=== PATIENT | female | born 1990 | race Caucasian/White ===

== ENCOUNTER 2020-09-16 17:15 | Emergency (ER) | payer BC, SELFPAY ==
[2020-09-16 17:30] VITALS: BP 153/79; PULSE 80; RESP 20; TEMP 36.6; O2SAT 100
--- NOTE | 2020-09-16 17:31 | ED.ABDPAIN ---
HPI - Abdominal Pain General Chief Complaint: Nausea/Vomiting/Diarrhea Stated Complaint: Diarrhea Source: patient Mode of arrival: ambulatory Limitations: no limitations History of Present Illness HPI narrative: Patient is a 30-year-old female who presents complaining of diarrhea x3 weeks. She reports loose watery stool every a.m. Denies abdominal pain. Denies nausea or vomiting. She reports initially taking Imodium without relief. She denies significant medical history. She denies taking over the counter medications at this time. MD elicited complaint: other (Diarrhea) Related Data Home Medications Medication Instructions Recorded Confirmed multivitamin 1 tablet PO DAILY 11/06/19 09/16/20 levonorgestrel-ethinyl estrad 1 tablet PO DAILY 09/16/20 09/16/20 [Vienva] Allergies Allergy/AdvReac Type Severity Reaction Status Date / Time No Known Allergies Allergy Verified 09/16/20 17:47 Review of Systems Review of Systems: Narrative: CONSTITUTIONAL: Denies fever, chills, or sweats. EYES: Denies visual changes, redness, or discharge. ENT: Denies rhinorrhea, congestion, sore throat, or otalgia. CARDIOVASCULAR: Denies chest pain, palpitations, or edema. RESPIRATORY: Denies cough or dyspnea. GASTROINTESTINAL: Denies abdominal pain, nausea, vomiting. Reports diarrhea daily x3 weeks. GENITOURINARY: Denies dysuria or hematuria. SKIN: Denies rash or itching. MUSCULOSKELETAL: Denies back pain, joint pain, or myalgia. NEUROLOGIC: Denies headache, numbness, dizziness, or weakness. PSYCHIATRIC: Denies anxiety or depression. [facility] Past Medical History Medical History (Updated 09/16/20 @ 18:01 by MADISON Baires) Depression GERD (gastroesophageal reflux disease) Rectal bleed Surgical History Surgical History No significant past surgical history Family History Family History Mother Hypertension Family history of elevated blood lipids Father Hypertension Family history of elevated blood lipids Social History Social History Smoking status: Never smoker Alcohol intake: current Substance use: never Occupation/Education: occupation Comments At the time of signature, I have reviewed and agree with nursing past medical, surgical, social, and family history unless otherwise noted. Please see nursing chart for further information. There is no relevant family history pertinent to the presenting complaint. Exam Narrative: Exam Narrative: GENERAL: Well-appearing, well-nourished, and in no acute distress. HEAD: Normocephalic, atraumatic. EYES: No redness or drainage. ENT: Mucous membranes pink and moist. CHEST: No respiratory distress. Clear to auscultation. HEART: Regular rate and rhythm. GI: Soft, nontender without rebound, or guarding. No distention. Bowel sounds normal in all quadrants. MUSCULOSKELETAL: No bony tenderness. EXTREMITIES: Normal range of motion. No edema. SKIN: Warm, dry, no rash. NEURO: No focal deficits. Alert and oriented x3. Gait steady. PSYCH: Normal affect. No signs of depression or anxiety. Course Vital Signs Vital signs: Vital Signs Temperature 36.6 C 09/16/20 17:30 Pulse Rate 80 09/16/20 17:30 Respiratory Rate 20 09/16/20 17:30 Blood Pressure 153/79 H 09/16/20 17:30 Pulse Oximetry 100 09/16/20 17:30 Temperature 36.6 C 09/16/20 17:30 Pulse Rate 80 09/16/20 17:30 Respiratory Rate 20 09/16/20 17:30 Blood Pressure 153/79 H 09/16/20 17:30 Pulse Oximetry 100 09/16/20 17:30 Reviewed-patient is informed that they may have pre-hypertension or hypertension based on a blood pressure reading. I recommend the patient call the primary care provider listed on their discharge instructions or a physician of their choice this week to arrange follow-up for further evaluation of
== END 2020-09-16 18:05 | disposition home or self-care (01) ==
PROVIDERS: Emergency Provider Nurse Practitioner; PCP Internal Medicine
DX: R19.7 Diarrhea, unspecified (principal); K21.9 Gastro-esophageal reflux disease without esophagitis; F32.9 Major depressive disorder, single episode, unspecified
CPT/HCPCS: 99213; G0463

== ENCOUNTER → 2020-10-30 02:40 | Outpatient (CLI) | payer BC, SELFPAY ==
[2020-10-30 19:43] LABS: SARS-CoV-2 RNA PCR Negative
== END ==
PROVIDERS: PCP Internal Medicine; Visit Provider Internal Medicine Gastroenterology
DX: Z01.812 Encounter for preprocedural laboratory examination (principal); Z20.822 Contact with and (suspected) exposure to COVID-19
CPT/HCPCS: C9803; U0003; U0005

== ENCOUNTER 2020-11-03 02:35 | Day surgery (SDC) | payer BC, SELFPAY ==
[2020-10-21 14:40] VITALS: BMI 26.4
[2020-11-03 09:04] VITALS: BP 110/66; PULSE 90; RESP 18; TEMP 36.8; O2SAT 100
[2020-11-03] MEDS: LACTATED RINGERS 1,000 ML 150 ML IV CONT (09:15)
--- NOTE | 2020-11-03 09:26 | PM.HPGS ---
History of Present Illness History of Present Illness Consent: Risks, benefits, and alternatives have been discussed and questions answered. Patient agrees to proceed with procedure. Chief complaint: diarrhea, epigastric pain Narrative: Maya Lopez is a 30 year old female who has had severe diarrhea for 2 months with negative stool studies. Also she has been having epigastric pain which affects her appetite. Pantoprazole did not relieve her symptoms Review of Systems Review of Systems: All systems reviewed & are unremarkable except as noted in HPI and below PMFSH Past Medical History Medical History Depression GERD (gastroesophageal reflux disease) Rectal bleed Surgical History Surgical History No significant past surgical history Family History Family History Mother Hypertension Family history of elevated blood lipids Father Hypertension Family history of elevated blood lipids Social History Social History Smoking status: Never smoker Alcohol intake: current Drinks per week: 5 Substance use: never Living arrangements: with family Gender identity (if verbalized by the patient): Male Spiritual care concerns: No Meds Home Medications and Allergies Home Medications Medication Instructions Recorded Confirmed Type multivitamin 1 tablet PO DAILY 11/06/19 10/21/20 History butalbital 50 mg-acetaminophen 325 1 cap PO Q4H PRN #14 cap 04/20/20 10/21/20 Rx mg-caffeine 40 mg-codeine 30 mg cap venlafaxine 150 mg 150 mg PO DAILY #90 cap 05/12/20 10/21/20 Rx capsule,extended release 24 hr alprazolam 0.25 mg tablet 0.25 mg PO DAILY PRN #30 tablet 06/21/20 10/21/20 Rx levonorgestrel-ethinyl estrad 1 tablet PO DAILY 09/16/20 10/21/20 History [Vienva] Allergies Allergy/AdvReac Type Severity Reaction Status Date / Time No Known Allergies Allergy Verified 10/21/20 14:38 Vital Signs Vital Signs - 24 hr 11/03/20 09:04 Temperature 36.8 C Pulse Rate 90 Respiratory Rate 18 Blood Pressure 110/66 Pulse Oximetry 100 Exam Resp: Auscultation: clear to auscultation bilaterally Cardio: Rate: regular rate Rhythm: regular rhythm GI: GI Palp: Yes Soft to palpation and No Tenderness to palpation present (GI) Assessment and Plan Assessment and plan (1) Epigastric pain: Code(s): R10.13 - Epigastric pain Status: Acute Assessment and Plan: EGD with possible biopsy or dilatation or cautery. (2) Chronic diarrhea: Code(s): K52.9 - Noninfective gastroenteritis and colitis, unspecified Status: Acute Assessment and Plan: Colonoscopy with possible biopsy or polypectomy or cautery or injection of substances.
--- NOTE | 2020-11-03 09:41 | WPDANESEPPF ---
Anes - Initial Pre Proc Eval Procedure: Operation Date: 11/03/20 10:00 Proposed Procedures p Esophagogastroduodenoscopy & Colonoscopy - Sukhwinder Hall MD Date/Time: 11/03/20 09:41 Surgeon: Sukhwinder Hall MD Pre Op Diagnosis: diarrhea, epigastric pain Patient Data Age: 30 Gender: F Height: 5 ft 4 in Weight: 70.3 kg Last Vital Signs Temp 98.3 F 11/03/20 09:04 Pulse 90 11/03/20 09:04 Resp 18 11/03/20 09:04 BP 110/66 11/03/20 09:04 Pulse Ox 100 11/03/20 09:04 Allergies Allergy/AdvReac Type Severity Reaction Status Date / Time No Known Allergies Allergy Verified 10/21/20 14:38 Home Medications Medication Instructions Recorded Confirmed Type multivitamin 1 tablet PO DAILY 11/06/19 10/21/20 History butalbital 50 mg-acetaminophen 325 1 cap PO Q4H PRN #14 cap 04/20/20 10/21/20 Rx mg-caffeine 40 mg-codeine 30 mg cap venlafaxine 150 mg 150 mg PO DAILY #90 cap 05/12/20 10/21/20 Rx capsule,extended release 24 hr alprazolam 0.25 mg tablet 0.25 mg PO DAILY PRN #30 tablet 06/21/20 10/21/20 Rx levonorgestrel-ethinyl estrad 1 tablet PO DAILY 09/16/20 10/21/20 History [Vienva] Patient hx anesthesia problems: none Family hx anesthesia problems: none PMFSH Past Medical History Medical History Depression GERD (gastroesophageal reflux disease) Rectal bleed Surgical History Surgical History No significant past surgical history Family History Family History Mother Hypertension Family history of elevated blood lipids Father Hypertension Family history of elevated blood lipids Social History Social History Smoking status: Never smoker Alcohol intake: current Drinks per week: 5 Substance use: never Living arrangements: with family Gender identity (if verbalized by the patient): Male Spiritual care concerns: No Anes - Eval Final PreProcedure Day of Procedure 11/03/20 09:41 Patient weight: normal Heart: regular rate and rhythm Lungs: clear to auscultation Airway: Mallampati scale class II Neurological: alert and oriented Last oral intake: >/= 8 hours ASA classification: II Emergent: no Anesthetic plan: proceed Anesthesia type and monitoring: general GIVS and standard monitoring Informed Consent: The patient's anesthetic plan and its attendant risks and benefits were discussed with the patient/family/POA. Questions were solicited and answers provided to the satisfaction of the patient/family/POA.
[2020-11-03 10:21] VITALS: BP 104/62; PULSE 68; RESP 21; O2SAT 100
[2020-11-03 10:31] VITALS: BP 114/70; PULSE 63; RESP 20; O2SAT 100
[2020-11-03 10:41] VITALS: BP 115/69; PULSE 59; RESP 18; O2SAT 99
== END 2020-11-03 11:00 | disposition home or self-care (01) ==
PROVIDERS: PCP Internal Medicine; Visit Provider Internal Medicine Gastroenterology
PROC: 0DJ08ZZ Inspection of Upper Intestinal Tract, Via Natural or Artificial Opening Endoscopic (ICD-10-PCS; CPT 43235; principal; 2020-11-03 10:00)
DX: K52.9 Noninfective gastroenteritis and colitis, unspecified (principal); K21.9 Gastro-esophageal reflux disease without esophagitis; F32.9 Major depressive disorder, single episode, unspecified
CPT/HCPCS: 45380; 43239; 87081; 88305; J2704; J7120

== ENCOUNTER 2023-04-28 11:52 | Outpatient (CLI) | payer BC, SELFPAY ==
[2023-04-28] VITALS (7 sets, daily range): BP systolic 119–123; BP diastolic 77–82; PULSE 81–94
[2023-04-28 12:32] LABS: Basophils Percent Auto 0.4 % (0.2-1.2); Eosinophils Absolute Auto 0.2 K/mm3 (0-0.3); Eosinophils Percent Auto 2.3 % (0-4.4); Hemoglobin 10.6 g/dL (12.0-15.0); Immature Granulocyte Absolute 0.04 K/mm3 (0.00-0.031); Immature Granulocyte Percent A 0.5 % (0-0.5); Lymphocytes Percent Auto 19.1 % (18.3-44.2); Mean Corpuscular HGB Conc 33.1 g/dl (32-36); Mean Corpuscular Hemoglobin 30.5 pg (26-34); Mean Platelet Volume 10.4 fl (7.4-10.4); Monocytes Absolute Auto 0.6 K/mm3 (0.1-0.6); Monocytes Percent Auto 7.9 % (2.6-8.5); Neutrophils Absolute Auto 5.5 K/mm3 (1.3-6.7); Neutrophils Percent Auto 69.8 % (45.5-73.1); Platelet Count Result 259 k/mm3 (150-375); Red Blood Count 3.48 M/mm3 (4.2-5.4); Red Cell Distribution Width 12.6 % (11.5-14.5); White Blood Count 7.9 K/mm3 (4.5-10.0)
[2023-04-28 12:38] LABS: Appearance Urine Clear (Clear); Bacteria Urine None Seen /hpf; Bilirubin Urine Negative (Negative); Blood Urine Negative (Negative); Color Urine Yellow (Yellow); Glucose Urine UA Negative (Negative); Ketones Urine Negative (Negative); Leukocyte Esterase Ur Trace LEU/UL (NEGATIVE); Nitrate Urine Negative (Negative); Non Pathogenic Casts 0-2; Protein Urine Negative (Negative); RBC Urine 0-2 /hpf (0-2); Squamous Epithelial Cell Urine None seen /hpf (Few); Urobilinogen Urine 0.2 mg/dL (<2.0); WBC Urine 0-5 /hpf (0-3)
[2023-04-28 12:41] LABS: Creatinine Urine 120.5 mg/dL; Total Protein Urine Random 10 mg/dL; Ur Ttl Prot Creatinine Ratio 0.08 mg/mg (0-0.20)
[2023-04-28 12:44] LABS: Add Urine Microscopic? YES
[2023-04-28 12:45] LABS: Alanine Aminotransferase 14 U/L (6-35); Alkaline Phosphatase 507 U/L (38-126); Anion Gap 7 mmol/L (8-16); Aspartate Amino Transferase 20 U/L (14-36); Bilirubin,Total 0.3 mg/dL (0.2-1.3); Blood Urea Nitrogen 9 mg/dL (7-17); Calcium 8.1 mg/dL (8.4-10.2); Carbon Dioxide 20 mmol/L (22-30); Chloride 107 mmol/L (98-107); Estimated Glomerular Filt Rate > 60; Glucose 123 mg/dL (65-110); Potassium 3.8 mmol/L (3.4-5.0); Sodium 134 mmol/L (137-145)
== END 2023-04-28 13:30 | disposition home or self-care (01) ==
LOC: ANHOBOP 11:57 → ANHLDR 12:00
PROVIDERS: PCP Nurse Practitioner Family; Visit Provider Obstetrics & Gynecology
DX: O13.9 Gestational [pregnancy-induced] hypertension without significant proteinuria, unspecified trimester (principal); Z3A.00 Weeks of gestation of pregnancy not specified
CPT/HCPCS: 36415; 59025; 80053; 81001; 82570; 84156; 84550; 85025; 87086; 99199

== ENCOUNTER 2023-04-30 02:30 | Inpatient (IN) | payer BC, SELFPAY ==
[2023-04-30] VITALS (225 sets, daily range): BP systolic 104–167; BP diastolic 63–113; PULSE 71–162; RESP 16–20; TEMP 36.1–37; O2SAT 87–100; BMI 34.4
[2023-04-30 03:28] LABS: Basophils Percent Auto 0.2 % (0.2-1.2); Eosinophils Absolute Auto 0.3 K/mm3 (0-0.3); Eosinophils Percent Auto 2.9 % (0-4.4); Hematocrit 32.8 % (37.0-47.0); Hemoglobin 10.8 g/dL (12.0-15.0); Immature Granulocyte Absolute 0.07 K/mm3 (0.00-0.031); Immature Granulocyte Percent A 0.8 % (0-0.5); Lymphocytes Absolute Auto 2.01 K/mm3 (0.9-3.2); Lymphocytes Percent Auto 23.5 % (18.3-44.2); Mean Corpuscular HGB Conc 32.9 g/dl (32-36); Mean Corpuscular Hemoglobin 30.3 pg (26-34); Mean Corpuscular Volume 91.9 fl (80-100); Mean Platelet Volume 10.3 fl (7.4-10.4); Monocytes Percent Auto 11.7 % (2.6-8.5); Neutrophils Absolute Auto 5.2 K/mm3 (1.3-6.7); Neutrophils Percent Auto 60.9 % (45.5-73.1); Platelet Count Result 261 k/mm3 (150-375); Red Blood Count 3.57 M/mm3 (4.2-5.4); Red Cell Distribution Width 12.7 % (11.5-14.5); White Blood Count 8.6 K/mm3 (4.5-10.0)
--- NOTE | 2023-04-30 03:30 | LDADM ---
This patient, Maya Lopez, was admitted to Labor/Delivery/Recovery 103 on 04/30/23 at 02:30. Plans for labor, pain management and were discussed with patient. Patient/family oriented to hospital policies and general routines including ID bracelet, bed and alarms, visiting hours, pain management, procedures, bathroom and other care routines, personal items, smoking policy, room service/diet and guest tray routines, infant security routines, and visiting hours. Patient/Family are encouraged to report perceived risks to care and to ask questions if they do not understand what they are told or what they should do. See [facility]BI[facility] for further documentation.
--- NOTE | 2023-04-30 04:48 | WPDANESEPP ---
Anes - Eval Pre Procedure Procedure: Labor epidural Date/Time: 04/30/23 04:48 Surgeon: barron Preop Diagnosis: Abdominal pain with contractions Pre Op Diagnosis: Leaking Patient Data Age: 32 Gender: F Height: 1.65 m Weight: 94 kg Last Vital Signs Pulse 82 04/30/23 04:45 BP 113/63 04/30/23 04:45 Allergies Allergy/AdvReac Type Severity Reaction Status Date / Time No Known Allergies Allergy Verified 02/14/23 08:55 Home Medications Medication Instructions Recorded Confirmed Type multivitamin 1 tablet PO DAILY 11/06/19 04/28/23 History butalbital 50 mg-acetaminophen 325 1 cap PO Q4H PRN headahce #14 caps 08/10/22 04/28/23 Rx mg-caffeine 40 mg-codeine 30 mg cap venlafaxine 150 mg See Rx Instructions .Route 02/14/23 04/28/23 Rx capsule,extended release 24 hr .COMPLEX #90 caps valacyclovir 1 gram tablet 2,000 mg PO Q12H PRN cold symptoms 04/25/23 04/28/23 Rx #20 tabs Laboratory Tests 04/30/23 03:20 WBC 8.6 K/mm3 (4.5-10.0) RBC 3.57 L M/mm3 (4.2-5.4) Hgb 10.8 L g/dL (12.0-15.0) Hct 32.8 L % (37.0-47.0) MCV 91.9 fl (80-100) MCH 30.3 pg (26-34) MCHC 32.9 g/dl (32-36) RDW 12.7 % (11.5-14.5) Plt Count 261 k/mm3 (150-375) MPV 10.3 fl (7.4-10.4) Immature Gran % (Auto) 0.8 H % (0-0.5) Neut % (Auto) 60.9 % (45.5-73.1) Lymph % (Auto) 23.5 % (18.3-44.2) [place] % (Auto) 11.7 H % (2.6-8.5) Eos % (Auto) 2.9 % (0-4.4) Baso % (Auto) 0.2 % (0.2-1.2) Lymph # (Auto) 2.01 K/mm3 (0.9-3.2) [place] # (Auto) 1.0 H K/mm3 (0.1-0.6) Eos # (Auto) 0.3 K/mm3 (0-0.3) Baso # (Auto) 0.0 K/mm3 (0.0-0.1) Abs Immat Gran (auto) 0.07 H K/mm3 (0.00-0.031) Absolute Neuts (auto) 5.2 K/mm3 (1.3-6.7) Absolute Nucleated RBC 0.0 K/mm3 (0.0-0.012) Nucleated RBC % 0.0 % (0.0-0.2) RPR Pending Blood Type A Positive Antibody Screen Negative : gestational age HCG: positive Patient hx anesthesia problems: none Family hx anesthesia problems: none Results Review: All pre-operative results and documents have been reviewed as part of the pre-operative evaluation. [facility] Past Medical History Medical History Anxiety Depression GERD (gastroesophageal reflux disease) Rectal bleed Tension headache Surgical History Surgical History No significant past surgical history Family History Family History (Updated 04/28/23 @ 13:11 by Jada Thomas RN) Mother Family history of elevated blood lipids Hypertension Parkinson disease Father Family history of elevated blood lipids Hypertension Social History Social History Smoking status: Never smoker Second hand tobacco smoke exposure: No Alcohol intake: current Drinks per week: 3 Alcohol use details: occasionally/socially Substance use: never Substance use type: does not use Lack of Transportation: No Lack of Food: Never True Current Housing: I Have Housing Concerned About Future Housing: No Difficulty Paying Gas/Electric Bills: No Difficulty Paying for Meds: No Currently Unemployed: No Education: Master's Degree or Higher Difficulty w/ Childcare or Family Care: No Living arrangements: with family Occupation/Education: occupation Gender identity (if verbalized by the patient): Male Spiritual care concerns: No Exam Day of Procedure 04/30/23 04:48 Patient weight: overweight Airway: Mallampati scale class II
[2023-04-30] MEDS: LACTATED RINGERS 1,000 ML 125 ML IV CONT ×2 (05:00→09:05)
[2023-04-30] MEDS: OXYTOCIN 30 UNITS/NS 500 ML 30 UNITS/500 ML BAG 6 UNITS IV CONT (05:38)
--- NOTE | 2023-04-30 08:52 | WPDHPUPDATE1 ---
History and Physical Update Update Date/Time: 04/30/23 08:52 32-year-old 1 at 37 weeks with gestational hypertension who presented with spontaneous rupture of membranes. Cervix 4 cm, clear fluid, reassuring heart tones, epidural placed, elena, expected management. History and Physical has been reviewed, including an updated exam of the patient. There are NO changes in the patient's condition. Risks, benefits, and alternatives have been discussed and questions answered. Patient agrees to proceed with procedure.
--- NOTE | 2023-04-30 17:06 | PM.OBPRVD ---
OB - Delivery Note Procedure Delivery date: 04/30/23 Procedure: Events: Gestational Hypertension Induction method: AROM and Per Pitocin Protocol Route of delivery: Indication for instrumentation: maternal exhaustion Episiotomy description: Midline Laceration Description: None Specimen: No Quantitative Blood Loss (ml): 150 Anesthesia type: Epidural Complications: none [place] Baby Date of : 04/30/23 Weeks of gestation at delivery: 38 presentation: vertex position: Right Occiput Anterior Placenta delivery description: Spontaneous score one minute: 8 score five minutes: 9 Narrative: vacuum delivery-kiwi vacuum, 1 pull -short, time less than 30 seconds, ROP position, +5 station, outlet vacuum, maternal exhaustion was the indication, 1 contraction, episiotomy performed 2-0 Vicryl repair,
[2023-04-30] MEDS: fentaNYL CITRATE INJ (*CRX) 100 MCG/2 ML VIAL 50 MCG IV PUSH (17:10)
[2023-04-30] MEDS: OXYTOCIN 30 UNITS/NS 500 ML 30 UNITS/500 ML BAG 125 UNITS IV CONT (17:22)
[2023-04-30] MEDS: IBUPROFEN 600 MG TABLET PO ×2 (17:58→23:58)
--- NOTE | 2023-04-30 19:47 | OBPPTRN ---
Patient transferred to post room #288 via wheelchair. Support person present. Oriented to unit, room, information board, rooming in, admission packet and security measures. Patient verbalizes understanding.
[2023-04-30] MEDS: ACETAMINOPHEN 325 MG TABLET 650 MG PO (20:00)
[2023-05-01] VITALS: BP 134/87; PULSE 83; RESP 18; TEMP 37; O2SAT 97
[2023-05-01] MEDS: ACETAMINOPHEN 325 MG TABLET 650 MG PO (04:00)
[2023-05-01] MEDS: IBUPROFEN 600 MG TABLET PO ×3 (06:01→20:58)
--- NOTE | 2023-05-01 07:35 | PM.OBPNVD ---
OB - PN: Subj Subjective Date/time seen: 05/01/23 07:35 Interval history: pp day 1 vacuum assisted delivery, episiotomy pain, pt would like increased pain medication baby and doig well OB - PN: Obj Data Labs 04/30/23 03:20 OB - PN A/P Plan day: 1 Plan: routine care Time Spent With Patient Time: Total time spent is greater than 50% in coordination of care (as documented) at patient's floor/unit and/or counseling patient: Review of Systems Review of Systems: All systems reviewed & are unremarkable except as noted in HPI and below Exam Const: General: cooperative and healthy appearing Resp: Effort & Inspection: normal respiratory effort Cardio: Rate: regular rate Rhythm: regular rhythm GI: Other: soft Neuro: General: patient oriented x3 Extrem: Right lower extremity: edema Left lower extremity: edema
[2023-05-01 07:59] LABS: Hematocrit 30.3 % (37.0-47.0); Hemoglobin 9.9 g/dL (12.0-15.0)
[2023-05-01] MEDS: DOCUSATE SODIUM 100 MG CAPSULE PO ×2 (08:03→17:46)
[2023-05-01] MEDS: HYDROcodone/acetaminophen (*CRX) 5-325 MG TABLET 1 TAB PO ×6 (08:05→23:41)
[2023-05-01] MEDS: KETOROLAC 30 MG/ML VIAL (*BKC) IV PUSH (08:07)
[2023-05-01 08:35] VITALS: BP 127/82; PULSE 79; RESP 16; TEMP 36.7; O2SAT 99
[2023-05-01 08:56] LABS: Rapid Plasma Reagin Non-Reactive (NonReactive)
[2023-05-01] MEDS: VENLAFAXINE HCL XR 75 MG CAP.ER.24H BY MOUTH (10:23)
[2023-05-01] MEDS: MULTIVIT/MIN/PREN/FOL AC/IRON TABLET 1 TAB PO (10:23)
[2023-05-01] MEDS: polyethylene glycoL 3350 17 GM POWD.PACK PO (10:27)
[2023-05-01 12:56] VITALS: BP 149/81; PULSE 80; RESP 16; TEMP 36.6; O2SAT 99
--- NOTE | 2023-05-01 15:07 | PC.NURSE ---
[id number] Introductions were made, then consulted with patient to assess needs related to . Mother led the conversation with her?plans to feed?her infant, the?experience so far and denies pain with latching. Encouraged understanding the benefits of skin to skin, responding to feeding cues, frequencies of feeding 8-12 times in 24 hours (approximately 2-3 hours) encouraging swallowing at the breast. Reviewed positioning and alignment, supporting breast, off-centered (asymmetrical latch) and leading with the chin with big, open, wide gape. Resources provided for inpatient assistance with name written on the communication board. Reported to Yovana QUINTERO.
[2023-05-01 19:53] VITALS: BP 142/67; PULSE 102; RESP 18; TEMP 36.6; O2SAT 100
[2023-05-02] MEDS: HYDROcodone/acetaminophen (*CRX) 5-325 MG TABLET 1 TAB PO ×4 (02:43→11:52)
[2023-05-02] MEDS: IBUPROFEN 600 MG TABLET PO ×2 (02:44→08:42)
--- NOTE | 2023-05-02 07:52 | PM.OBPNVD ---
OB - PN: Subj Subjective Date/time seen: 05/02/23 07:52 Interval history: pp day 2 vacuum assisted delivery, episiotomy pain, but doing much better today baby and doing well OB - PN: Obj Data Labs 05/01/23 07:41 Labs: Laboratory Results - last 24 hr 04/30/23 05/01/23 03:20 07:41 Hgb 9.9 L Hct 30.3 L RPR Non-reactive OB - PN A/P Time Spent With Patient Time: Total time spent is greater than 50% in coordination of care (as documented) at patient's floor/unit and/or counseling patient: Review of Systems Review of Systems: All systems reviewed & are unremarkable except as noted in HPI and below Exam Const: General: cooperative Chest: Chest palpation & inspection: normal inspection of the chest Resp: Effort & Inspection: normal respiratory effort Cardio: Rate: regular rate Rhythm: regular rhythm GI: Other: soft Skin: General skin exam: normal color Extrem: Right lower extremity: normal to inspection Left lower extremity: normal to inspection
--- NOTE | 2023-05-02 07:56 | PM.OBDSVD ---
DS: Admitting Diagnosis Discharge Date 05/02/23 Admitting Diagnosis IOL DS: Discharge Diagnosis Discharge Diagnosis (1) Vaginal delivery: Code(s): O80 - Encounter for full-term uncomplicated delivery Status: Acute OB - DS: Summary OB Procedures : None OB Procedures Intrapartum: Vacuum extraction OB Procedures: : None Time Spent with Patient Time attestation: Total time spent providing and/or coordinating discharge services: DS: Data Data Completed and Pending Labs on day of discharge: Labs from last 24 hours 05/01/23 04/30/23 07:41 03:20 Hgb 9.9 L Hct 30.3 L RPR Non-reactive Discharge Plan Discharge Attending physician on discharge: Deirdre Roe Discharging Clinician: Licha Emmanuel Patient Disposition: Home, Self-Care Activity: pelvic rest Diet: regular Patient Instructions: Antibiotic Form Stand Alone Forms: General Discharge Information Follow-up/Referrals: Deirdre Roe MD [Physician] - 4 Weeks Discharge Medications: New hydrocodone-acetaminophen 5-325 mg Tablet 1 tablet PO Q3H PRN (Reason: Pain Rated 4-6) Qty: 20 0RF ibuprofen 600 mg Tablet 600 mg PO Q6H PRN (Reason: Cramping) Qty: 30 0RF Continued venlafaxine 150 mg capsule,extended release 24hr See Rx Instructions .ROUTE .COMPLEX Qty: 90 1RF Dose Instruction: TAKE 1 CAPSULE BY MOUTH DAILY Rx Instructions: TAKE 1 CAPSULE BY MOUTH DAILY Discontinued multivitamin Tablet 1 tablet PO DAILY pptoyaaxap-[id number] [id number] mg capsule 1 cap PO Q4H PRN (Reason: headahce) Qty: 14 0RF valacyclovir 1 gram tablet 2,000 mg PO Q12H PRN (Reason: cold symptoms) Qty: 20 0RF Rx Instructions: Take (2)tablets by mouth at onset of symptoms then repeat 12 hours later Date of admission: 04/30/23 02:30 Primary Care Provider: Janey Quinn Admitting Provider: Deirdre Roe Attending physician on admission: Deirdre Roe Condition: Stable
[2023-05-02 08:30] VITALS: BP 123/87; PULSE 91; RESP 16; TEMP 36.8; O2SAT 99
[2023-05-02] MEDS: polyethylene glycoL 3350 17 GM POWD.PACK PO (08:42)
[2023-05-02] MEDS: DOCUSATE SODIUM 100 MG CAPSULE PO (08:42)
[2023-05-02] MEDS: MULTIVIT/MIN/PREN/FOL AC/IRON TABLET 1 TAB PO (08:42)
--- NOTE | 2023-05-02 11:01 | PC.NURSE ---
[id number] Consulted with patient to assess needs related to . Mother led the conversation with her?plans to feed?her and the?experience so far. Mother works well with her with encouragement and education. Dr. Zafar joined the discussion answering questions. Encouraged understanding of the benefits of skin to skin (demonstrating unwrapping infant and placing upright on her chest), stimulating with massage touch, changing positions to encourage wakefulness, how to watch for early feeding cues, responsive feeding, feeding on demand (aiming for 8-12 times in 24 hours, about every 2-3 hours), milk production, building/maintaining a milk supply, duration of feeding, signs of adequate intake/output and how to record on the feeding sheet. Reviewed positioning, alignment, supporting the breast to facilitate a deep latch with a sandwich hold, asymmetrical latch (off-center), leading with the chin with a big, open, wide gape and body close to mother. Infant latched optimally to the right breast in cross cradle position. Education given to mother of how to visualize sucks/swallows. was able to maintain latch without discomfort to mother. Nipple care reviewed with optimal latch and good positioning. Reviewed good handwashing when or touching the breast/nipples to prevent infection. Resources used to facilitate learning were used with the visual handouts, tool, mom and baby guide. Mother voiced understanding of skin to skin, stimulating with massage touch, responsive feedings, hand expressed colostrum, talking to infant to encourage if it has been 2 -2.5 hours since the start of the last , to call if infant does not latch, or if there is discomfort with . Resources provided for inpatient/outpatient with feeding sheet and the mom/baby guide. Parents voiced understanding of information, demonstrated learning and will call if there is a request for assistance. Reported to the Primary RN.
[2023-05-03 09:50] VITALS: BP 112/72; PULSE 88; RESP 18; TEMP 36.9; O2SAT 100
== END 2023-05-02 12:48 | disposition home or self-care (01) | DRG 807 ==
LOC: ANHLDR 02:34 → ANHOB2 19:49
PROVIDERS: Admitting Provider Obstetrics & Gynecology; PCP Nurse Practitioner Family; Visit Provider Obstetrics & Gynecology
DX: O13.4 Gestational [pregnancy-induced] hypertension without significant proteinuria, complicating childbirth (principal); Z37.0 Single live birth; Z3A.37 37 weeks gestation of pregnancy; P03.89 Newborn affected by other specified complications of labor and delivery
CPT/HCPCS: 36415; 85014; 85018; 85025; 86592; 86850; 86900; 86901; A9270; J1885; J2590; J2795; J3010; J7120